=== PATIENT | male | born 2000 | race Caucasian/White ===

== ENCOUNTER 2022-06-30 10:19 | Emergency (ER) | payer MEDICAID ==
[~2022-06-30] VITALS: Ht 167.6 cm; Wt 56.7 kg
[2022-06-30 10:38] VITALS: BP 143/72
[2022-06-30] MEDS ORDERED: KETOROLAC 60 MG/2 ML VIAL IM ONE (11:45)
[2022-06-30] MEDS ORDERED: IBUP-2213 PO (11:48)
--- NOTE | 2022-06-30 12:17 | NUR ---
Patient discharged with v/s stable. Written and verbal after care instructions given and explained. Patient alert, oriented and verbalized understanding of instructions. Ambulatory with steady gait. All questions addressed prior to discharge. ID band removed. Patient advised to follow up with PMD. Rx of ibuprofen (sent) given. Patient educated on indication of medication including possible reaction and side effects. Opportunity to ask questions provided and answered.
[2022-06-30 12:19] VITALS: BP 143/72
== END 2022-06-30 12:19 | disposition home or self-care (01) ==
LOC: MED 10:19
DX: M25.511 Pain in right shoulder (principal)
CPT/HCPCS: 99282; J1885